=== PATIENT | female | born 1995 | race Two or more races ===

== ENCOUNTER 2024-01-29 12:54 | Emergency (ER) | payer MEDICAID, SELFPAY ==
--- NOTE | 2024-01-29 13:10 | XR_ITS ---
Examination: Complete OB ultrasound, less than 14 weeks, transabdominal Date and time of exam: January 29, 2024 1357 hours INDICATIONS: Vaginal bleeding and pelvic cramping beginning this morning Technique: Obstetrical ultrasound images less than 14 weeks performed via transabdominal imaging Findings: Uterus 13.8 x 4.5 x 7.1 cm No uterine mass or intrauterine gestation Endometrial stripe 0.3 cm Right ovary 3.9 x 2.4 x 3.4 cm arterial flow 23 x 19 mm cyst Left ovary 3.1 x 2.0 x 2.0 cm arterial flow IMPRESSION: No uterine mass or intrauterine gestation Small right ovarian simple cyst.
[2024-01-29 13:33] VITALS: BP 119/82; PULSE 88; RESP 18; TEMP 36.9; O2SAT 99; BMI 31.9
[2024-01-29 14:02] LABS: Basophils # (Auto) 0.1 Thou/mm3 (0.0-0.2); Basophils % (Auto) 1 % (0-2.5); Eosinophils # (Auto) 0.1 Thou/mm3 (0.0-0.5); Eosinophils % (Auto) 1 % (0-10); Hematocrit 43.9 % (36.0-46.0); Hemoglobin 14.9 g/dL (12.0-16.0); Immature Granulocytes % (Auto) 1 % (0-0); Immature Granulocytes Auto 0.07 Thou/mm3 (0.00-0.00); Lymphocytes # (Auto) 3.2 Thou/mm3 (1.0-4.8); Lymphocytes % (Auto) 21 % (10-50); Mean Corpuscular HGB Conc 33.9 g/dl (31.0-37.0); Mean Corpuscular Hemoglobin 29.4 pg (25.0-35.0); Mean Corpuscular Volume 87 fL (80-100); Monocytes % (Auto) 7 % (0-12); Neutrophils # (Auto) 10.8 Thou/mm3 (1.8-7.7); Neutrophils % (Auto) 71 % (37-80); Nucleated Red Blood Cell % 0 /100 WBC (0); Platelet Count 363 Thou/mm3 (140-440); RDW Standard Deviation 41.6 fL (36.4-46.3); Red Blood Count 5.07 Miln/mm3 (4.00-5.20); White Blood Count 15.2 Thou/mm3 (3.6-11.0)
[2024-01-29 14:28] LABS: Alanine Aminotransferase 32 U/L (10-49); Albumin, Serum 4.6 gm/dL (3.5-5.0); Albumin/Globulin Ratio 1.6 (1.2-2.2); Alkaline Phosphatase 87 U/L (46-116); Anion Gap 7 (7-16); Aspartate Amino Transferase 16 U/L (0-34); BUN/Creatinine Ratio 13 Ratio (12-20); Beta HCG,Quantitative 8 mIU/mL (<5.0); Bilirubin,Total 0.4 mg/dL (0.3-1.2); Blood Urea Nitrogen 10 mg/dL (9-23); Calcium 9.7 mg/dL (8.3-10.6); Calcium (Corrected) 9.7 mg/dL (8.5-10.1); Carbon Dioxide 24.7 mMol/L (20.0-31.0); Chloride 105 mMol/L (98-107); Creatinine (Component) 0.8 mg/dL (0.6-1.3); Estimated Creatinine Clearance 123.4 mL/min (>60); Globulin 2.8 gm/dL (2.3-3.5); Glucose 85 mg/dL (74-106); Osmolality,Calculated 271 (275-295); Potassium 4.1 mMol/L (3.4-5.1); Sodium 137 mMol/L (136-145); Total Protein 7.4 gm/dL (5.7-8.2); eGFR > 60 See Note
--- NOTE | 2024-01-29 14:37 | PD.EDVAGBL ---
ED OB Contraction Preg RMI/HPI General Chief complaint: Vaginal Bleeding Stated complaint: VAGINAL BLEEDING AT 6 1/2 WKS; SENT BY OB Time Seen by Provider: 01/29/24 13:10 Arrival date/time: 01/29/24 12:54 28-year-old female presents to the emergency department complains of vaginal bleeding patient reports being approximate 6 and half weeks patient reports she was sent by her [employer] for further evaluation Limitations: no limitations Related Data Home Medications ?Medication ?Instructions ?Recorded ?Confirmed No Known Home Medications 02/24/21 02/24/21 Allergies Allergy/AdvReac Type Severity Reaction Status Date / Time No Known Allergies Allergy Verified 01/29/24 12:55 Review of Systems Review of Systems Systems Reviewed: All systems reviewed, normal except as documented Constitutional Constitutional: Reports system reviewed and no additional complaints, except as documented, Denies fever(s) and Denies headache(s) Eyes Eyes: Reports system reviewed and no additional complaints, except as documented and Denies blurry vision ENT Ears, Nose, Mouth, and Throat: Reports system reviewed and no additional complaints, except as documented, Denies headache(s), Denies nasal congestion and Denies nasal discharge Cardiovascular Cardiovascular: Reports system reviewed and no additional complaints, except as documented, Denies chest pain and Denies dyspnea Respiratory Respiratory: Reports system reviewed and no additional complaints, except as documented, Denies chest congestion, Denies cough and Denies dyspnea Gastrointestinal Gastrointestinal: Reports system reviewed and no additional complaints, except as documented and Denies abdominal pain Genitourinary Genitourinary: Reports system reviewed and no additional complaints, except as documented, Reports abnormal vaginal bleeding and Denies vaginal discharge Integumentary/Breasts Skin/Breast: Reports system reviewed and no additional complaints, except as documented and Denies rash Neurologic Neurologic: Reports system reviewed and no additional complaints, except as documented, Reports as per HPI and Denies headache(s) Past Medical History Past Medical History NEUROLOGIC: Negative Neurological Disorders CARDIAC: Negative Congestive Heart Failure RESPIRATORY: Negative Chronic Obstructive Pulmonary Disease (COPD) GASTROINTESTINAL: Negative Gastrointestinal Disorders or Hepatitis GENITOURINARY: Negative Genitourinary Disorders or Renal Disease REPRODUCTIVE: Negative Breast Cancer or Pelvic Inflammatory Disease MUSCULOSKELETAL: Negative Musculoskeletal Disorders ENDOCRINE: Negative Endocrine Disorders, Diabetes Mellitus Type 1 or Diabetes Mellitus Type 2 HEMATOLOGIC: Negative Blood Disorders OTHER HISTORY: Negative Autoimmune Disease, Blood Transfusions, Blood Transfusion Reaction, Anesthesia Reactions, MRSA, VRSA, Vancomycin-Resistant Enterococci, Human Immunodeficiency Virus (HIV), Chicken Pox, Measles, Mumps, Rubella (Frisian Measles), Pertussis, Clostridium Difficile or Breast Cancer Family History FAMILY HISTORY: Negative Family Psychiatric Problems, Family Respiratory Disorders, Family Cardiac Disorders, Family Gastrointestinal Problems, Family Cancer, Family Surgery or Family Anesthesia Reaction Surgical History SURGICAL: Negative Section Social History SMOKING STATUS: Never smoker SECOND HAND EXPOSURE: No ED Exam General Limitations: Present no limitations General appearance: Present alert and in no apparent distress Head Head exam: Present atraumatic Eye Eye exam: Present normal appearance, PERRL and EOMI ENT ENT exam: Present normal exam, normal oropharynx and mucous membranes moist Neck Neck exam: Present normal inspection, full ROM and trachea midline Chest Chest inspection: Present normal inspection and symmetric chest wall rise Respiratory Respiratory exam: Present normal lung sounds bilaterally; Absent respiratory distress Cardiovascular Cardiovascular exam: Present regular rate, normal rhythm and normal heart sounds Abdominal Exam Abdominal exam: Present soft and normal bowel sounds; Absent distention, tenderness, guarding, rebound or rigidity Extremities Exam Extremities exam: Present normal inspection and full ROM Back Exam Back exam: Present normal inspection and full ROM Neurological Exam Neurological exam: Present alert, oriented X3 and CN II-XII intact Psychiatric Psychiatric exam: Present normal affect and normal mood Skin Skin exam: Present warm, dry, intact and normal color Course Quality Measures none Orders Category Date Time Status US OB <= 14 weeks fetus Stat Exams 01/29/24 13:10 Completed ABO/RH Type Stat Lab 01/29/24 13:20 Completed Beta HCG,Quantitative Stat Lab 01/29/24 13:20 Completed CBC Stat Lab 01/29/24 13:20 Completed Comprehensive Metabolic Panel Stat Lab 01/29/24 13:20 Completed Vital Signs Vital signs: Vital Signs Temperature 98.5 F 01/29/24 13:33 Pulse Rate 88 01/29/24 13:33 Respiratory Rate 18 01/29/24 13:33 Blood Pressure 119/82 01/29/24 13:33 Pulse Oximetry (%) 99 01/29/24 13:33 Oxygen Delivery Method Room Air 01/29/24 13:33 O2 saturation 99% room air within normal limits Vaginal Bleeding MDM Narrative MDM Narrative: 28-year-old female presents to the emergency department complains of vaginal bleeding patient reports being approximate 6 and half weeks patient reports she was sent by her [employer] for further evaluation On exam patient well-appearing patient does not appear ill or toxic in no acute distress Lab work as well as ultrasound obtained Lab work is not very reassuring hCG is only 8 Patient discharged home in no distress to follow-up with primary care doctor in the next 24 to 48 hours and for any worsening symptoms to return to the ER immediately Patient data External records reviewed:: [facility] previous records Clinical information provided by:: patient Social determinants that could affect healthcare access:: none Patient has the following chronic illnesses:: None How is presenting disease/condition affected by chronic disease/condition?: no chronic disease Evaluation data The following diagnostics were reviewed and interpreted by me:: lab results and radiology exam(s) Lab and/or radiology exams considered but not ordered:: Labs and radiology obtained Interpretation Summary: Reviewed by me Medications / Prescriptions Medications or Prescriptions considered but not ordered:: Given Medication administrations:: Given Consultations Consultation(s) initiated? (list below): No Diagnosis Vaginal Bleeding Differential Diagnosis: missed and threatened Most likely diagnosis given after review of the tests above:: Threatened Admission Indicated Admission indicated?: not indicated Admission Request Was there a request for admission?: No Disposition Plan Disposition Plan: Discharge Discharge Attestation Discharge Attestation: The patient and all family members were given an opportunity to ask questions and understood the discharge instructions. Discharge instructions specifically effects, indications for sooner follow up or return to the emergency department, and the expected course of current diagnosis. Patient condition: Stable Discharge Plan Plan Patient Disposition: HOME (Self Care) Disposition Comment: Stable Prescriptions/Referrals Prescriptions/Med Rec: No Action No Known Home Medications Referrals: Elif Betancourt NP [Primary Care Provider] - 01/30/24 Problem List Clinical Impression: Threatened Patient/Caregiver Discharge Instructions Education Materials: Understanding Miscarriage ... Additional Instructions: Follow-up with your [employer]ER as discussed for worsening symptoms return immediately Print Language: Ukrainian Stand Alone Forms: Mayra Award Info., Work/School Release, Patient Portal Info Letter HALI/CARY Supervising Physician ASHLEY Supervising Physician: Dr Bert YUNG Attestation MD Attestation The patient was seen by the midlevel practitioner. I, the co-signing physician, was present during the entire ER visit. While I did not physically examine the patient, I was available for consultation as needed.
== END 2024-01-29 14:48 | disposition home or self-care (01) ==
PROVIDERS: Nurse Practitioner Primary Care; Emergency Provider Emergency Medicine; PCP Nurse Practitioner Family
DX: O20.0 Threatened abortion (principal); Z3A.01 Less than 8 weeks gestation of pregnancy
CPT/HCPCS: 36415; 76801; 80053; 84702; 85025; 86900; 86901; 99284

== ENCOUNTER 2025-01-14 10:40 | Inpatient (IN) | payer MEDICAID, SELFPAY ==
--- NOTE | 2025-01-09 14:22 | ESHP_ITS ---
RE: ELSA FLORES : 1995 DATE OF ADMISSION: 01/14/2025 DATE OF ADMISSION AND SURGERY: 01/14/2025 HISTORY OF PRESENT ILLNESS: This is a 29-year-old 3, para 1-0-1-1, with due date of 01/20 with intrauterine at 39 weeks and 1 day on 01/14/2025, who presents for repeat delivery. She denies any leaking or bleeding. She reports normal movement. She has occasional contractions. ALLERGIES: NO KNOWN DRUG ALLERGIES. MEDICATIONS: multivitamin 1 p.o. daily. SOCIAL HISTORY: She denies any alcohol, drug use, or smoking. PAST MEDICAL HISTORY: Denies. PAST SURGICAL HISTORY: delivery in 2018. OBSTETRICAL HISTORY: In 2018, 40 weeks, delivery, 6 pound 7 ounce male, no complications. In 01/2024, 7 weeks spontaneous AB, no D and C. REVIEW OF SYSTEMS: She denies any chest pain, palpitations, cough, fever, flank pain, shortness of breath, or lower extremity pain. PHYSICAL EXAMINATION: VITAL SIGNS: Blood pressure is 112/72, heart rate 88, respirations 18, temperature 98.6. HEENT: Oropharynx and sclerae are clear. LUNGS: Clear to auscultation bilaterally. HEART: Regular rate and rhythm. ABDOMEN: Gravid, term size. Old Pfannenstiel scar noted. EXTREMITIES: Nontender. SKIN: No gross rashes or lesions. NEUROLOGIC: No focal deficit. ASSESSMENT: 1. Intrauterine at 39 weeks and 1 day on 01/14/2025. 2. Previous delivery. 3. Would like repeat delivery. PLAN: Repeat delivery. Informed consent was obtained. Patient was made aware of the risks, complications, alternatives, and benefits of the proposed procedure and she agrees. DT: 13:46:10 TT: 14:22:00 Ref: [id number] - TID: [id number] MTDD
[2025-01-12 10:21] LABS: Basophils # (Auto) 0.0 Thou/mm3 (0.0-0.2); Basophils % (Auto) 0 % (0-2.5); Eosinophils # (Auto) 0.1 Thou/mm3 (0.0-0.5); Eosinophils % (Auto) 1 % (0-10); Hematocrit 37.6 % (36.0-46.0); Hemoglobin 12.7 g/dL (12.0-16.0); Immature Granulocytes Auto 0.04 Thou/mm3 (0.00-0.00); Lymphocytes # (Auto) 2.0 Thou/mm3 (1.0-4.8); Lymphocytes % (Auto) 22 % (10-50); Mean Corpuscular HGB Conc 33.8 g/dl (31.0-37.0); Mean Corpuscular Hemoglobin 28.3 pg (25.0-35.0); Mean Corpuscular Volume 84 fL (80-100); Monocytes # (Auto) 0.6 Thou/mm3 (0.0-0.8); Monocytes % (Auto) 6 % (0-12); Neutrophils # (Auto) 6.4 Thou/mm3 (1.8-7.7); Neutrophils % (Auto) 70 % (37-80); Nucleated Red Blood Cell # 0.00 Thou/mm3 (0.00-0.00); Nucleated Red Blood Cell % 0 /100 WBC (0); Platelet Count 275 Thou/mm3 (140-440); RDW Standard Deviation 45.1 fL (36.4-46.3); Red Blood Count 4.48 Miln/mm3 (4.00-5.20); White Blood Count 9.1 Thou/mm3 (3.6-11.0)
[2025-01-12 11:56] LABS: INR 0.9 (0.9-1.3); Partial Thromboplastin Time 27.9 Seconds (22.0-36.0); Prothrombin Time 9.8 Seconds (9.0-12.2)
[2025-01-12 12:18] LABS: Alanine Aminotransferase 8 U/L (10-49); Albumin, Serum 3.7 gm/dL (3.5-5.0); Albumin/Globulin Ratio 1.8 (1.2-2.2); Alkaline Phosphatase 229 U/L (46-116); Anion Gap 9 (7-16); Aspartate Amino Transferase 12 U/L (0-34); BUN/Creatinine Ratio 8 Ratio (12-20); Bilirubin,Total 0.3 mg/dL (0.3-1.2); Blood Urea Nitrogen < 5 mg/dL (9-23); Calcium 8.7 mg/dL (8.3-10.6); Calcium (Corrected) 8.9 mg/dL (8.5-10.1); Carbon Dioxide 22.8 mMol/L (20.0-31.0); Chloride 108 mMol/L (98-107); Creatinine (Component) 0.6 mg/dL (0.6-1.3); Globulin 2.1 gm/dL (2.3-3.5); Glucose 92 mg/dL (74-106); Osmolality,Calculated 276 (275-295); Potassium 3.9 mMol/L (3.4-5.1); Sodium 140 mMol/L (136-145); Total Protein 5.8 gm/dL (5.7-8.2); eGFR > 60 See Note
[2025-01-12 12:49] LABS: Syphilis Nonreactive (Nonreactive)
[2025-01-14] VITALS (18 sets, daily range): BP systolic 78–130; BP diastolic 55–80; PULSE 68–163; RESP 14–18; TEMP 36.8–36.9; O2SAT 81–99; BMI 34.2
[2025-01-14] MEDS: METOCLOPRAMIDE INJ 5 MG/ML VIAL 2 ML 10 MG IVP (12:27)
[2025-01-14] MEDS: FAMOTIDINE INJ 10 MG/ML VIAL 2 ML 20 MG IV (12:27)
[2025-01-14] MEDS: ceFAZolin/D5W 2 GM IV 2 GM/100 ML BAG IV (12:28)
--- NOTE | 2025-01-14 12:51 | PD.LDDS ---
DS: Providers Provider Date of admission: 01/14/25 10:40 Primary care physician: Elif Betancourt NP Admitting Provider: Héctor Riojas MD Attending Provider on Admission: Héctor Riojas MD Attending Provider on DC: Héctor Riojas MD Discharging Provider: Héctor Riojas MD DS: Diagnosis Problem List Completed Was Problem List Reviewed/Reconciled?: Yes Summary/Hosp Course Peripartum Data Delivery Method: Low Transverse Procedures: Procedures Operation Date: 01/14/25 12:45 <No data on this case meets the specified criteria> Time Spent with Patient Time attestation: Total time spent providing and/or coordinating discharge services: Exam Vital Signs Pulse BP Pulse Ox 77 114/72 97 01/14/25 11:07 01/14/25 11:07 01/14/25 11:48 Discharge Plan Plan Patient Disposition: HOME (Self Care) Patient condition on transfer: Stable Prescriptions/Referrals Prescriptions/Med Rec: New ibuprofen 600 mg tablet 600 mg PO Q6H PRN (Reason: fever or pain) Qty: 30 0RF Continued PNV no.95-ferrous fumarate-FA [] 28 mg iron- 800 mcg tablet 1 tab PO QDAY Patient Comments: TAKE 1 TABLET BY MOUTH EVERY DAY Referrals: Elif Betancourt NP [Primary Care Provider] Patient/Caregiver Discharge Instructions Discharge Activity: activity as tolerated Other Discharge Activity Instructions:: Follow up office 1 week. Education Materials: C Section Dc Print Language: Turkish Stand Alone Forms: Mayra Award Info., Patient Portal Info Letter Planned Discharge Date 01/14/25
[2025-01-14] MEDS: KETOROLAC INJ 30 MG/ML VIAL IVP (14:52)
[2025-01-14] MEDS: OXYTOCIN in NS 20 units 20 UNIT/1,000 ML BAG 125 UNIT IV ×2 (15:42→22:23)
--- NOTE | 2025-01-14 18:50 | ESOP_ITS ---
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 Prior C/S Elects repeat C/S Pre-Op diagnosis: IUP 39w1d by best dates. Prior C/S Elects repeat C/S Post-Op diagnosis: IUP 39w1d by best dates. Prior C/S Elects repeat C/S Anesthesia type: Spinal Procedure description: After proper informed consent was obtained and the patient was made aware of the risks, complications, alternatives and benefits of the proposed procedure she was taken to the operating room where she underwent induction of spinal anesthesia. She was prepped and draped in the usual sterile fashion. A timeout was performed.? A Pfannenstiel skin incision was made with the scalpel and carried through to the underlying layer of fascia with the Bovie. The fascia was nicked in the midline incision and the incision was extended bilaterally with the Bovie. The inferior aspect of the fascial incision was grasped with Cristal clamps elevated and the underlying rectus muscle dissected off with the Bovie. The superior aspect the fascial incision was grasped with Cristal clamps elevated and the underlying rectus muscle dissected off with the Bovie. The rectus muscles were in the midline. The peritoneum was grasped between 2 Silveira clamps and entered sharply with the Metzenbaum scissors. The peritoneum was extended superiorly and inferiorly with good visualization of the bladder. The vesicouterine peritoneum was incised transversely and the bladder flap created digitally. A Ye blade was inserted. A low transverse incision was made in the uterus with a scapel and the incision was extended digitally. The infants head would not deliver through the low transverse incision therefore a Mityvac vacuum was placed on the head, 3 cm forward of the posterior fontonelle over the saggital suture and on the first traction attempt without a pop off the head delivered. The 's head delivered and the mouth and nose were suctioned with the bulb suction. The shoulder and body delivered atraumatically. The cord was clamped after 30 second delayed cord clamping and the cord was cut.? The infant was handed off to the waiting Pediatric staff, cord blood was collected for lab testing. The placenta was removed complete and intact. The uterus was exteriorized and cleared of all clots and debris. The uterine incision was closed with #1-0 chromic catgut suture in a running interlocking fashion. A second layer of the same suture was used to imbricate the first layer and obtain excellent hemostasis. The omentum was adherent to the lower uterine segment and using the Enseal X-1 Large Jaw the adhesions were lysed. The vesicouterine peritoneum was closed with 2-0 chromic catgut suture in a running fashion. The firm uterus was returned to the abdomen. The gutters were cleared of all clots and debris. The peritoneum was closed with 0 chromic catgut suture in running fashion. The rectus muscle was closed with 0 chromic catgut suture. The fascia was closed with 0 Vicryl beginning at each angle and ending in the center in a running fashion. The subcutaneous tissue was irrigated with warmed normal saline solution and found to be hemostatic. The subcutaneous tissue was closed with 2-0 chromic catgut suture in a running fashion. The skin was closed with 4-0 Monocryl. A Dermabond Prineo dressing was applied and a sterile pressure dressing was applied.? She tolerated the procedure well. Counts were correct. I discussed with the patient the nature of her condition, intraoperative findings and expectation for recovery all? questions answered. Specimen: none Estimated blood loss (ml): 600 Findings: Live male infant Clear amniotic fluid Placenta removed complete and intact Uterus, ovaries and tubes grossly wnl. Weight see RN notes APGARs see RN notes. Pelvic adhesions: Omentum adherant to lower uterine segment. Complications: none Surgical staff Operation Date: 01/14/25 12:45 Case Staff Anesthesiologist: Scout Tomlinson RN First Assistant: Simran Gonzalez Dr, Surgeon Diagnosis Discharge Diagnosis (1) delivery delivered: Status: Acute Problem List Completed Was Problem List Reviewed/Reconciled?: Yes
[2025-01-14 18:59] LABS: Basophils # (Auto) 0.0 Thou/mm3 (0.0-0.2); Basophils % (Auto) 0 % (0-2.5); Eosinophils # (Auto) 0.0 Thou/mm3 (0.0-0.5); Eosinophils % (Auto) 0 % (0-10); Hematocrit 35.0 % (36.0-46.0); Hemoglobin 12.1 g/dL (12.0-16.0); Immature Granulocytes Auto 0.07 Thou/mm3 (0.00-0.00); Lymphocytes # (Auto) 2.3 Thou/mm3 (1.0-4.8); Lymphocytes % (Auto) 16 % (10-50); Mean Corpuscular HGB Conc 34.6 g/dl (31.0-37.0); Mean Corpuscular Hemoglobin 28.9 pg (25.0-35.0); Mean Corpuscular Volume 84 fL (80-100); Monocytes # (Auto) 0.9 Thou/mm3 (0.0-0.8); Monocytes % (Auto) 7 % (0-12); Neutrophils # (Auto) 10.7 Thou/mm3 (1.8-7.7); Neutrophils % (Auto) 76 % (37-80); Nucleated Red Blood Cell # 0.00 Thou/mm3 (0.00-0.00); Nucleated Red Blood Cell % 0 /100 WBC (0); Platelet Count 229 Thou/mm3 (140-440); RDW Standard Deviation 44.3 fL (36.4-46.3); Red Blood Count 4.19 Miln/mm3 (4.00-5.20); White Blood Count 13.9 Thou/mm3 (3.6-11.0)
--- NOTE | 2025-01-14 19:05 | PD.LDDELS ---
Data (Ferguson) Data Hx Section: Yes : 3 Term: 0 : 0 Livin Abortions: Spontaneous & Theraputic: 1 Delivery Data (Ferguson) Labor Data Induction/Augmentation Agent: None ROM date: 01/14/25 ROM time: 13:03 Amniotic membrane rupture type: Artificial Amniotic fluid description: Clear Delivery Data EDC: 01/20/25 EDC calculated by:: LMP/early US confirmation Onset of labor date: 01/14/25 Onset of labor time: 13:05 Complete dilation date: 01/14/25 Complete dilation time: 13:05 [place] delivery date: 01/14/25 [place] delivery time: 13:05 Gestational age (weeks): 39 Gestational age (days): 1 Placenta delivery date: 01/14/25 Placenta delivery time: 13:06 Stage 1 total time: Labor - Stage 1 Duration 0 minutes Delivered by: Héctor Riojas Delivery nurse: janis Holt nurse: arsalan Support person(s) at delivery: fob Other staff at delivery: see ana tracker Delivery Method Delivery method: Low Transverse Presentation: Vertex position: OA Anesthesia Type Anesthesia Type: Spinal Anesthesia type: Spinal Placenta Placenta delivery description: Manual Removal Cord blood sent to lab: Yes cord blood collection: Cord Blood Type Episiotomy Episiotomy description: None EBL Estimated blood loss (ml): 600 Umbilical Cord cord description: 3 Vessels Additional Procedures Mityvac assisted C/S delivery Complications Complications: None Data (Ferguson) Data order: 1 's gender: Male weight (gms): 7 lb 10.401 oz Weight (pounds): 7 lbs and 10.4 ozs [place] length: 22 in 1 minute: 9 5 minutes: 9
[2025-01-14] MEDS: HYDROcodone/APAP 5/325 TABLET 1 TAB PO (20:09)
[2025-01-15] MEDS: KETOROLAC INJ 30 MG/ML VIAL IVP (00:07)
[2025-01-15] MEDS: HYDROcodone/APAP 5/325 TABLET 1 TAB PO ×3 (04:02→22:38)
[2025-01-15 04:08] VITALS: BP 98/63; PULSE 84; RESP 16; TEMP 36.9; O2SAT 96
[2025-01-15] MEDS: ENOXAPARIN SOD INJ 40 MG/0.4 ML SYRINGE SC (07:59)
[2025-01-15] MEDS: DOCUSATE SOD 100 MG CAPSULE PO (08:00)
--- NOTE | 2025-01-15 08:15 | ESPR_ITS ---
RE: ELSA FLORES : 1995 DATE OF SERVICE: 01/15/2025 SUBJECTIVE: Post-op day #1. Patient denies any problem or complaints. OBJECTIVE: Vital Signs: Blood pressure is 98/63, heart rate 84, respirations 16. Temperature is 98.4, pulse oximetry is 96% on room air. Lungs: Clear to auscultation bilaterally. Heart: Regular rate and rhythm. Abdomen: Dressing dry and intact. Fundus is firm. Extremities: Nontender. LABORATORY DATA: Hemoglobin pre-delivery is 12.7, post-delivery is 12.1. ASSESSMENT: Post-op day #1 status post delivery with lysis of adhesions. PLAN: 1. Remove dressing. 2. Discontinue IV. 3. Encourage ambulation. 4. support. 5. Possible discharge home tomorrow. DT: 08:03:47 TT: 08:14:00 Ref: [id number] - TID: [id number]
[2025-01-15 08:30] VITALS: BP 105/66; PULSE 79; RESP 18; TEMP 36.9; O2SAT 96
[2025-01-15 08:41] VITALS: BP 101/68; PULSE 80; RESP 15; TEMP 36.2; O2SAT 96
[2025-01-15] MEDS: IBUPROFEN TAB 400 MG TABLET 800 MG PO ×2 (08:51→17:38)
[2025-01-15 12:30] VITALS: BP 98/69; PULSE 78; RESP 16; TEMP 36.8; O2SAT 98
[2025-01-15 19:23] VITALS: BP 101/66; PULSE 79; RESP 18; TEMP 36.8; O2SAT 96
[2025-01-16 03:36] VITALS: BP 100/63; PULSE 75; RESP 14; TEMP 36.7; O2SAT 96
[2025-01-16] MEDS: IBUPROFEN TAB 400 MG TABLET 800 MG PO ×2 (03:37→15:26)
[2025-01-16] MEDS: SIMETHICONE 80 MG CHEW PO (03:55)
[2025-01-16 07:51] VITALS: BP 115/74; PULSE 74; TEMP 36.8; O2SAT 97
--- NOTE | 2025-01-16 08:32 | ESPR_ITS ---
RE: ELSA FLORES : 1995 DATE OF SERVICE: 01/16/2025 SUBJECTIVE: Postop day #2. Patient denies any problem or complaints. She is voiding. She is ambulating. She is tolerating diet. She is passing flatus. She denies any excessive vaginal bleeding. She denies any dizziness or lightheadedness. She denies any chest pain, palpitations, shortness of breath, or lower extremity pain. OBJECTIVE: Vital Signs: Blood pressure 100/63, heart rate 75, respirations 14, temperature is 98.0, pulse ox is 96% on room air. Lungs: Clear to auscultation bilaterally. Heart: Regular rate and rhythm. Abdomen: Fundus is firm. Incision clear and intact. Extremities: Nontender. ASSESSMENT: Postop day #2 status post delivery. PLAN: Discharge home. Discharge instructions given. Follow up in the office in 1 week. DT: 07:06:36 TT: 08:31:00 Ref: [id number] - TID: [id number]
[2025-01-16] MEDS: DOCUSATE SOD 100 MG CAPSULE PO (09:05)
[2025-01-16] MEDS: ENOXAPARIN SOD INJ 40 MG/0.4 ML SYRINGE SC (09:05)
[2025-01-16] MEDS: HYDROcodone/APAP 5/325 TABLET 1 TAB PO (09:05)
[2025-01-16 12:00] VITALS: BP 104/67; PULSE 83; RESP 18; TEMP 36.7; O2SAT 95
== END 2025-01-16 17:04 | disposition home or self-care (01) | DRG 540 ==
LOC: S4SX 10:43 → S4NX 12:31
PROVIDERS: Admitting Provider Specialist; PCP Nurse Practitioner Family; Visit Provider Specialist
PROC: 10D00Z1 Extraction of Products of Conception, Low, Open Approach (ICD-10-PCS; CPT 59514; principal; 2025-01-14 12:30)
DX: O34.211 Maternal care for low transverse scar from previous cesarean delivery (principal); Z37.0 Single live birth; Z3A.39 39 weeks gestation of pregnancy
CPT/HCPCS: 36415; 80053; 81001; 85025; 85610; 85730; 86780; 86850; 86900; 86901; A4217; A4314; A4649; J0689; J1650; J1885; J2210; J2250; J2274; J2590; J2765; J3010; J3490; S0191; A9270; J2270